=== PATIENT | female | born 1990 | race Caucasian/White ===

== ENCOUNTER 2017-12-15 20:36 | Emergency (ER) | payer MEDICAID ==
[~2017-12-15] VITALS: Ht 157.5 cm; Wt 50.8 kg
[2017-12-15 20:40] VITALS: BP_SYST 115
[2017-12-15 20:58] LABS: BILIRUBIN,URINE NEGATIVE (NEGATIVE); BLOOD, URINE NEGATIVE (NEGATIVE); CLARITY/URINE CLEAR (CLEAR); COLOR,URINE YELLOW (YELLOW); GLUCOSE,URINE NEGATIVE (NEGATIVE); KETONES,URINE NEGATIVE (NEGATIVE); LEUKOCYTE ESTERASE ,URINE NEGATIVE (NEGATIVE); NITRITE, URINE NEGATIVE (NEGATIVE); PH,URINE 7.5 (5.0-8.0); PROTEIN URINE NEGATIVE (NEGATIVE); UROBILINOGEN,URINE 0.2 (0.2-1.0)
[2017-12-15 21:38] LABS: BASOPHILS # (AUTO) 0.1 K/uL (0.0-0.2); BASOPHILS % (AUTO) 1.1 % (0.0-2.0); EOSINOPHILS # (AUTO) 0.1 K/uL (0.0-0.4); EOSINOPHILS % (AUTO) 1.3 % (0.0-4.0); HEMATOCRIT 34.6 % (36-48); HEMOGLOBIN 11.4 g/dL (12.0-16.0); LYMPHOCYTES # (AUTO) 2.9 K/uL (1.0-5.5); LYMPHOCYTES % (AUTO) 44.7 % (20.5-51.5); MEAN CORPUSCULAR HEMOGLOBIN 28 pg (27-31); MEAN CORPUSCULAR HGB CONC 33 % (32-36); MEAN CORPUSCULAR VOLUME 83 fL (79.0-98.0); MONOCYTES # (AUTO) 0.8 K/uL (0.0-1.0); MONOCYTES % (AUTO) 11.6 % (1.7-9.3); NEUTROPHILS # (AUTO) 2.8 K/uL (1.8-7.7); NEUTROPHILS % (AUTO) 41.3 % (40.0-70.0); PLATELET COUNT (AUTO) 175 K/uL (130-430); RED BLOOD CELL COUNT(AUTO) 4.17 MIL/uL (4.2-6.2); RED CELL DISTRIBUTION WIDTH 15.2 % (9.0-15.0); WHITE BLOOD COUNT (AUTO) 6.7 K/uL (4.8-10.8)
[2017-12-15 21:48] LABS: CALCIUM 8.8 mg/dL (8.4-11.0); CREATININE 0.82 mg/dL (0.55-1.30)
[2017-12-15 22:30] VITALS: BP_SYST 109
== END 2017-12-15 22:30 | disposition home or self-care (01) ==
LOC: SED 20:36
DX: S39.012A Strain of muscle, fascia and tendon of lower back, initial encounter (principal); X58.XXXA Exposure to other specified factors, initial encounter; Y93.89 Activity, other specified; Y92.89 Other specified places as the place of occurrence of the external cause; Y99.8 Other external cause status
CPT/HCPCS: 36415; 80048; 81003; 81025; 85025; 99284

== ENCOUNTER 2019-04-26 09:58 | Emergency (ER) | payer MEDICAID ==
[~2019-04-26] VITALS: Ht 157.5 cm; Wt 51.7 kg
[2019-04-26 10:08] VITALS: BP_SYST 131
[2019-04-26 10:54] VITALS: BP_SYST 131
== END 2019-04-26 10:54 | disposition home or self-care (01) ==
LOC: SED 09:58
DX: N39.0 Urinary tract infection, site not specified (principal); R03.0 Elevated blood-pressure reading, without diagnosis of hypertension
CPT/HCPCS: 81002; 81025; 99283

== ENCOUNTER 2019-11-24 15:43 | Emergency (ER) | payer MEDICAID ==
[~2019-11-24] VITALS: Ht 157.5 cm; Wt 54.4 kg
[2019-11-24 15:55] VITALS: BP_SYST 114
--- NOTE | 2019-11-24 15:55 | NUR ---
PT AAO AND AMBULATORY C/O WORSENING URINARY SYMPTOMS.
--- NOTE | 2019-11-24 16:20 | NUR ---
ER Dr. PRADO at bedside examining patient.
--- NOTE | 2019-11-24 16:30 | NUR ---
Patient given written and verbal discharge instructions and verbalizes understanding. DR. JOHAN DUFF MD discussed with patient the results and treatment provided. Patient in stable condition. ID arm band removed. Rx of MACROBID AND PYRIDIUM given. Patient educated on pain management and to follow up with PMD. Pain Scale 0/10. Opportunity for questions provided and answered. Medication side effect fact sheet provided.
[2019-11-24 16:35] VITALS: BP_SYST 114
== END 2019-11-24 16:30 | disposition home or self-care (01) ==
LOC: SED 15:43
DX: N39.0 Urinary tract infection, site not specified (principal)
CPT/HCPCS: 81002; 81025; 99283

== ENCOUNTER 2020-04-11 00:26 | Emergency (ER) | payer MEDICAID ==
[~2020-04-11] VITALS: Ht 157.5 cm; Wt 59.0 kg
[2020-04-11 00:35] VITALS: BP_SYST 129
[2020-04-11] MEDS ORDERED: NACL 0.9% 1,000 ML IV ONE (01:15)
[2020-04-11 01:30] LABS: BILIRUBIN,URINE 1+ (NEGATIVE); BLOOD, URINE 3+ (NEGATIVE); CLARITY/URINE TURBID (CLEAR); COLOR,URINE YELLOW (YELLOW); GLUCOSE,URINE NEGATIVE (NEGATIVE); KETONES,URINE TRACE (NEGATIVE); LEUKOCYTE ESTERASE ,URINE NEGATIVE (NEGATIVE); NITRITE, URINE NEGATIVE (NEGATIVE); PROTEIN URINE 1+ (NEGATIVE); UROBILINOGEN,URINE 0.2 (0.2-1.0)
[2020-04-11 01:32] LABS: HCG,QUAL RESULT NEGATIVE (NEGATIVE)
[2020-04-11 02:07] LABS: BACTERIA,URINE FEW /HPF (None Seen); RBC,URINE >100 /HPF (0-3); WBC,URINE 0-3 /HPF (0-3)
[2020-04-11 02:10] LABS: CALCIUM 8.7 mg/dL (8.4-11.0); CREATININE 0.66 mg/dL (0.55-1.30); POTASSIUM 3.7 mmol/L (3.5-5.1)
[2020-04-11 02:11] LABS: LYMPHOCYTES # (AUTO) 3.4 K/uL (1.0-5.5); MONOCYTES # (AUTO) 0.7 K/uL (0.0-1.0)
[2020-04-11 02:24] LABS: BASOPHILS % (AUTO) 0.7 % (0.0-2.0); EOSINOPHILS # (AUTO) 0.2 K/uL (0.0-0.4); EOSINOPHILS % (AUTO) 2.3 % (0.0-4.0); HEMATOCRIT 42.2 % (36-48); HEMOGLOBIN 14.2 g/dL (12.0-16.0); LYMPHOCYTES % (AUTO) 48.2 % (20.5-51.5); MEAN CORPUSCULAR HEMOGLOBIN 31 pg (27-31); MEAN CORPUSCULAR HGB CONC 34 % (32-36); MEAN CORPUSCULAR VOLUME 91 fL (79.0-98.0); MONOCYTES % (AUTO) 10.3 % (1.7-9.3); NEUTROPHILS # (AUTO) 2.7 K/uL (1.8-7.7); NEUTROPHILS % (AUTO) 38.5 % (40.0-70.0); PLATELET COUNT (AUTO) 177 K/uL (130-430); RED BLOOD CELL COUNT(AUTO) 4.64 MIL/uL (4.2-6.2); RED CELL DISTRIBUTION WIDTH 13.5 % (9.0-15.0)
[2020-04-11] MEDS ORDERED: KETOROLAC TROMETHAMINE 15 MG VIAL IVP ONE (03:30)
[2020-04-11 03:50] VITALS: BP_SYST 108
== END 2020-04-11 03:50 | disposition home or self-care (01) ==
LOC: SED 00:26
DX: O20.9 Hemorrhage in early pregnancy, unspecified (principal); Z3A.01 Less than 8 weeks gestation of pregnancy
CPT/HCPCS: 36415; 76830; 76857; 80048; 81000; 81025; 84702; 84703; 85025; 86900; 86901; 96361; 96374; 99284; J1885; J7030

== ENCOUNTER 2020-11-27 14:25 | Emergency (ER) | payer MEDICAID ==
[~2020-11-27] VITALS: Ht 157.5 cm; Wt 67.1 kg
[2020-11-27 14:47] VITALS: BP_SYST 142
[2020-11-27 15:18] LABS: BASOPHILS # (AUTO) 0.1 K/uL (0.0-0.2); BASOPHILS % (AUTO) 0.5 % (0.0-2.0); EOSINOPHILS # (AUTO) 0.1 K/uL (0.0-0.4); EOSINOPHILS % (AUTO) 0.6 % (0.0-4.0); HEMATOCRIT 42.4 % (36-48); HEMOGLOBIN 13.7 g/dL (12.0-16.0); MEAN CORPUSCULAR HEMOGLOBIN 28 pg (27-31); MEAN CORPUSCULAR HGB CONC 32 % (32-36); MEAN CORPUSCULAR VOLUME 88 fL (79.0-98.0); MONOCYTES # (AUTO) 0.9 K/uL (0.0-1.0); MONOCYTES % (AUTO) 8.7 % (1.7-9.3); NEUTROPHILS % (AUTO) 70.2 % (40.0-70.0); PLATELET COUNT (AUTO) 165 K/uL (130-430); RED BLOOD CELL COUNT(AUTO) 4.83 MIL/uL (4.2-6.2)
[2020-11-27 15:38] LABS: CALCIUM 8.9 mg/dL (8.4-11.0); CREATININE 0.76 mg/dL (0.55-1.30)
[2020-11-27 15:43] LABS: TOTAL BILIRUBIN 0.4 mg/dL (0.0-1.0)
[2020-11-27 15:49] LABS: BILIRUBIN,URINE NEGATIVE (NEGATIVE); COLOR,URINE YELLOW (YELLOW); GLUCOSE,URINE NEGATIVE (NEGATIVE); KETONES,URINE NEGATIVE (NEGATIVE); LEUKOCYTE ESTERASE ,URINE TRACE (NEGATIVE); NITRITE, URINE NEGATIVE (NEGATIVE); PROTEIN URINE NEGATIVE (NEGATIVE); UROBILINOGEN,URINE 0.2 (0.2-1.0)
[2020-11-27 16:05] LABS: BLOOD, URINE TRACE (NEGATIVE); CLARITY/URINE HAZY (CLEAR)
[2020-11-27 16:32] LABS: C-REACTIVE PROTEIN QUANT 0.3 mg/dL (0-0.5)
[2020-11-27 16:34] LABS: BACTERIA,URINE MODERATE /HPF (None Seen); MUCUS,URINE None Seen /LPF (None Seen); RBC,URINE 0-3 /HPF (0-3); URINE AMORPHOUS PHOSPHATES 2+ /HPF (None Seen)
[2020-11-27] MEDS ORDERED: HYDR-3917 PO (16:37)
[2020-11-27] MEDS ORDERED: OMEP20CA15 PO (16:37)
[2020-11-27 16:50] VITALS: BP_SYST 108
== END 2020-11-27 16:50 | disposition home or self-care (01) ==
LOC: SED 14:25
DX: R10.33 Periumbilical pain (principal); Z79.899 Other long term (current) drug therapy
CPT/HCPCS: 36415; 80053; 81000; 81025; 82150; 83605; 83690; 84703; 85025; 86140; 87086; 99283

== ENCOUNTER 2021-02-23 05:20 | Emergency (ER) | payer MEDICAID ==
[~2021-02-23] VITALS: Ht 157.5 cm; Wt 59.0 kg
[~2021-02-23 05:20] MED LIST: HYDR-3917 PO; OMEP20CA15 PO
[2021-02-23 05:39] VITALS: BP_SYST 106
[2021-02-23] MEDS ORDERED: ONDANSETRON HCL 4 MG/2 ML VIAL IVP ONE (05:45)
[2021-02-23] MEDS ORDERED: KETOROLAC TROMETHAMINE 30 MG VIAL IVP ONE (05:45)
[2021-02-23] MEDS ORDERED: ONDANSETRON HCL 4 MG/2 ML VIAL ONE (05:53)
[2021-02-23 06:36] LABS: CREATININE 0.68 mg/dL (0.55-1.30); POTASSIUM 3.6 mmol/L (3.5-5.1)
[2021-02-23 06:37] LABS: BASOPHILS # (AUTO) 0.1 K/uL (0.0-0.2); BASOPHILS % (AUTO) 0.8 % (0.0-2.0); EOSINOPHILS # (AUTO) 0.1 K/uL (0.0-0.4); EOSINOPHILS % (AUTO) 1.2 % (0.0-4.0); HEMATOCRIT 40.4 % (36-48); HEMOGLOBIN 13.4 g/dL (12.0-16.0); LYMPHOCYTES # (AUTO) 2.6 K/uL (1.0-5.5); LYMPHOCYTES % (AUTO) 36.9 % (20.5-51.5); MEAN CORPUSCULAR HEMOGLOBIN 30 pg (27-31); MEAN CORPUSCULAR HGB CONC 33 % (32-36); MEAN CORPUSCULAR VOLUME 90 fL (79.0-98.0); MONOCYTES # (AUTO) 0.8 K/uL (0.0-1.0); MONOCYTES % (AUTO) 10.7 % (1.7-9.3); NEUTROPHILS # (AUTO) 3.6 K/uL (1.8-7.7); PLATELET COUNT (AUTO) 176 K/uL (130-430); RED CELL DISTRIBUTION WIDTH 14.7 % (9.0-15.0); WHITE BLOOD COUNT (AUTO) 7.2 K/uL (4.8-10.8)
[2021-02-23 06:48] LABS: TOTAL BILIRUBIN 0.5 mg/dL (0.0-1.0)
[2021-02-23 07:32] LABS: BILIRUBIN,URINE 1+ (NEGATIVE); BLOOD, URINE NEGATIVE (NEGATIVE); CLARITY/URINE CLEAR (CLEAR); COLOR,URINE YELLOW (YELLOW); GLUCOSE,URINE NEGATIVE (NEGATIVE); KETONES,URINE 1+ (NEGATIVE); LEUKOCYTE ESTERASE ,URINE NEGATIVE (NEGATIVE); NITRITE, URINE NEGATIVE (NEGATIVE); PROTEIN URINE NEGATIVE (NEGATIVE); UROBILINOGEN,URINE 0.2 (0.2-1.0)
[2021-02-23 08:35] LABS: NEUTROPHILS % (AUTO) 50.4 % (40.0-70.0)
[2021-02-23 09:14] VITALS: BP_SYST 106
== END 2021-02-23 09:15 | disposition home or self-care (01) ==
LOC: SED 05:20
DX: R10.13 Epigastric pain (principal); R11.0 Nausea; Z79.899 Other long term (current) drug therapy
CPT/HCPCS: 36415; 76700; 80053; 81003; 81025; 83690; 84702; 85025; 96374; 96375; 99284; J1885; J2405

== ENCOUNTER 2021-07-18 14:01 | Emergency (ER) | payer MEDICAID ==
[~2021-07-18] VITALS: Ht 157.5 cm; Wt 57.2 kg
[2021-07-18 14:01] VITALS: BP_SYST 109
--- NOTE | 2021-07-18 14:01 | NUR ---
BROUGHT BACK TO BED IN HALLWAY, TRIAGED, REPORT GIVEN TO HARSHIL
--- NOTE | 2021-07-18 14:03 | NUR ---
Pt brought by self, A&Ox4, pt presents to ER with pain/ burning with urination and lower back pain x 1 week, skin pink and warm, cap refill <3, VSS, respirations even and unlabored.
--- NOTE | 2021-07-18 14:05 | NUR ---
Dr Ramachandran evaluating patient at bedside
[2021-07-18 14:37] LABS: BILIRUBIN,URINE NEGATIVE (NEGATIVE); CLARITY/URINE CLEAR (CLEAR); COLOR,URINE YELLOW (YELLOW); GLUCOSE,URINE NEGATIVE (NEGATIVE); KETONES,URINE NEGATIVE (NEGATIVE); LEUKOCYTE ESTERASE ,URINE TRACE (NEGATIVE); NITRITE, URINE NEGATIVE (NEGATIVE); PROTEIN URINE NEGATIVE (NEGATIVE); UROBILINOGEN,URINE 0.2 (0.2-1.0)
[2021-07-18 14:40] LABS: BLOOD, URINE TRACE (NEGATIVE)
--- NOTE | 2021-07-18 14:48 | NUR ---
received report from HORTENCIA Agudelo for continuation of care.
[2021-07-18 14:51] LABS: BACTERIA,URINE FEW /HPF (None Seen)
[2021-07-18 14:52] LABS: MUCUS,URINE 1+ /LPF (None Seen); YEAST,URINE Few /HPF (None Seen)
[2021-07-18 14:58] LABS: BASOPHILS # (AUTO) 0.1 K/uL (0.0-0.2); BASOPHILS % (AUTO) 1.2 % (0.0-2.0); EOSINOPHILS # (AUTO) 0.1 K/uL (0.0-0.4); EOSINOPHILS % (AUTO) 1.1 % (0.0-4.0); HEMATOCRIT 43.4 % (36-48); HEMOGLOBIN 14.5 g/dL (12.0-16.0); LYMPHOCYTES # (AUTO) 2.3 K/uL (1.0-5.5); LYMPHOCYTES % (AUTO) 37.4 % (20.5-51.5); MEAN CORPUSCULAR HEMOGLOBIN 30 pg (27-31); MEAN CORPUSCULAR HGB CONC 33 % (32-36); MEAN CORPUSCULAR VOLUME 91 fL (79.0-98.0); MONOCYTES # (AUTO) 0.6 K/uL (0.0-1.0); MONOCYTES % (AUTO) 10.3 % (1.7-9.3); NEUTROPHILS # (AUTO) 3.1 K/uL (1.8-7.7); PLATELET COUNT (AUTO) 168 K/uL (130-430); RED BLOOD CELL COUNT(AUTO) 4.76 MIL/uL (4.2-6.2); RED CELL DISTRIBUTION WIDTH 14.1 % (9.0-15.0); WHITE BLOOD COUNT (AUTO) 6.1 K/uL (4.8-10.8)
[2021-07-18 15:26] LABS: ANION GAP 9 (5-15); CHLORIDE 101 mmol/L (98-107); CREATININE 0.65 mg/dL (0.55-1.30); GLUCOSE 86 mg/dL (70-99); POTASSIUM 3.9 mmol/L (3.5-5.1); SODIUM SERUM 137 mmol/L (136-145); UREA NITROGEN, BLOOD 12 mg/dL (8-21)
[2021-07-18 15:29] LABS: GFR AFRICAN AMERICAN 138 mL/min (>90)
[2021-07-18] MEDS ORDERED: IBUPROFEN 800 MG TABLET PO ONE (15:30)
[2021-07-18 15:32] LABS: ALANINE AMINOTRANSFERASE 23 U/L (12-78); ALBUMIN 3.9 g/dL (3.4-4.8); AMYLASE 65 U/L (0-100); ASPARTATE AMINOTRANSFERASE 24 U/L (10-37); LIPASE 50 U/L (73-393); TOTAL BILIRUBIN 0.4 mg/dL (0.0-1.0)
[2021-07-18] MEDS ORDERED: IBUP-1969 PO (15:54)
[2021-07-18] MEDS ORDERED: NITR-85 PO (15:54)
[2021-07-18 15:56] LABS: C-REACTIVE PROTEIN QUANT < 0.2 mg/dL (0-0.5)
[2021-07-18 16:07] VITALS: BP_SYST 109
--- NOTE | 2021-07-18 16:09 | NUR ---
Patient given written and verbal discharge instructions and verbalizes understanding. ER MD discussed with patient the results and treatment provided. Patient in stable condition. ID arm band removed. Rx of Ibuprofen and Macrobid given. Patient educated on pain management and to follow up with PMD. Pain Scale 0/10. Opportunity for questions provided and answered. Medication side effect fact sheet provided.
== END 2021-07-18 16:09 | disposition home or self-care (01) ==
LOC: SED 14:01
DX: N39.0 Urinary tract infection, site not specified (principal); Z79.899 Other long term (current) drug therapy
CPT/HCPCS: 36415; 80053; 81000; 81025; 82150; 83605; 83690; 84703; 85025; 86140; 87086; 99283

== ENCOUNTER 2022-04-15 15:56 | Emergency (ER) | payer MEDICAID ==
[~2022-04-15] VITALS: Ht 157.5 cm; Wt 53.5 kg
[~2022-04-15 15:56] MED LIST changes: +IBUP-1969 PO; +NITR-85 PO
[2022-04-15 16:46] VITALS: BP_SYST 116
--- NOTE | 2022-04-15 19:50 | NUR ---
ER Dr.Dela Sow in triage examining patient.
[2022-04-15 20:02] LABS: BASOPHILS % (AUTO) 0.2 % (0.0-2.0); HEMATOCRIT 42.7 % (36-48); HEMOGLOBIN 14.5 g/dL (12.0-16.0); LYMPHOCYTES # (AUTO) 0.6 K/uL (1.0-5.5); LYMPHOCYTES % (AUTO) 7.8 % (20.5-51.5); MEAN CORPUSCULAR HEMOGLOBIN 31 pg (27-31); MEAN CORPUSCULAR HGB CONC 34 % (32-36); MEAN CORPUSCULAR VOLUME 90 fL (79.0-98.0); MONOCYTES # (AUTO) 0.2 K/uL (0.0-1.0); MONOCYTES % (AUTO) 3.1 % (1.7-9.3); NEUTROPHILS # (AUTO) 7.1 K/uL (1.8-7.7); NEUTROPHILS % (AUTO) 88.9 % (40.0-70.0); PLATELET COUNT (AUTO) 144 K/uL (130-430); RED BLOOD CELL COUNT(AUTO) 4.74 MIL/uL (4.2-6.2); RED CELL DISTRIBUTION WIDTH 14.2 % (9.0-15.0)
[2022-04-15 20:10] LABS: CREATININE 0.69 mg/dL (0.55-1.30)
[2022-04-15 20:16] LABS: ALBUMIN 4.3 g/dL (3.4-4.8); TOTAL BILIRUBIN 0.7 mg/dL (0.0-1.0)
[2022-04-15] MEDS ORDERED: ANT30 PO (21:37)
[2022-04-15] MEDS ORDERED: ACET-2634 PO (21:37)
[2022-04-15] MEDS ORDERED: FAMO40TA71 PO (21:37)
[2022-04-15] MEDS ORDERED: MAG HYDROX/AL HYDROX/SIMETH 30 ML, DICYCLOMINE HCL 20 MG, LIDOCAINE VISCOUS 2% 15ML (PO... PO ONE ×3 (22:00)
--- NOTE | 2022-04-15 22:54 | NUR ---
Patient presents to ED for evaluation of a 2-day history of intermittent, nonradiating epigastric abdominal pain and right upper quadrant, worsening this morning. Patient denies any alleviating or exacerbating factors. Denies fevers, chills, nausea, vomiting, dysuria, hematuria, constipation, diarrhea or other complaints. Patient breathing easy,respirations even unlabored.
[2022-04-15 23:08] VITALS: BP_SYST 108
--- NOTE | 2022-04-15 23:08 | NUR ---
Patient given written and verbal discharge instructions and verbalizes understanding. ER MD discussed with patient the results and treatment provided. Patient in stable condition. Rx of Acetaminophen, Mylanta and Pepcid sent to pharmacy of choice. Patient educated on pain management and to follow up with PMD. Pain Scale 3/10. Opportunity for questions provided and answered.
== END 2022-04-15 23:08 | disposition home or self-care (01) ==
LOC: SED 15:56
DX: K29.70 Gastritis, unspecified, without bleeding (principal); R10.13 Epigastric pain; R10.11 Right upper quadrant pain; Z79.899 Other long term (current) drug therapy
CPT/HCPCS: 99284; 76705; 80053; 85025; 36415; 76856; 81025; J2001

== ENCOUNTER 2023-07-17 22:40 | Emergency (ER) | payer MEDICAID ==
[~2023-07-17] VITALS: Ht 157.5 cm; Wt 59.0 kg
[~2023-07-17 22:40] MED LIST changes: +ACET-2634 PO; +ANT30 PO; +FAMO40TA71 PO
[2023-07-17 22:46] VITALS: BP_SYST 124; PULSE 81; RESP 20; TEMP 98; O2SAT 100
[2023-07-18 00:29] LABS: BASOPHILS # (AUTO) 0.1 K/uL (0.0-0.2); EOSINOPHILS # (AUTO) 0.1 K/uL (0.0-0.4); EOSINOPHILS % (AUTO) 1.1 % (0.0-4.0); HEMATOCRIT 37.3 % (36-48); HEMOGLOBIN 12.5 g/dL (12.0-16.0); LYMPHOCYTES # (AUTO) 2.2 K/uL (1.0-5.5); LYMPHOCYTES % (AUTO) 33.1 % (20.5-51.5); MEAN CORPUSCULAR HEMOGLOBIN 30 pg (27-31); MEAN CORPUSCULAR HGB CONC 33 % (32-36); MEAN CORPUSCULAR VOLUME 88 fL (79.0-98.0); MONOCYTES # (AUTO) 0.7 K/uL (0.0-1.0); MONOCYTES % (AUTO) 10.8 % (1.7-9.3); NEUTROPHILS # (AUTO) 3.6 K/uL (1.8-7.7); PLATELET COUNT (AUTO) 184 K/uL (130-430); RED BLOOD CELL COUNT(AUTO) 4.22 MIL/uL (4.2-6.2); RED CELL DISTRIBUTION WIDTH 14.1 % (9.0-15.0); WHITE BLOOD COUNT (AUTO) 6.7 K/uL (4.8-10.8)
[2023-07-18 00:44] LABS: BILIRUBIN,URINE NEGATIVE (NEGATIVE); BLOOD, URINE 3+ (NEGATIVE); COLOR,URINE YELLOW (YELLOW); GLUCOSE,URINE NEGATIVE (NEGATIVE); KETONES,URINE NEGATIVE (NEGATIVE); LEUKOCYTE ESTERASE ,URINE TRACE (NEGATIVE); NITRITE, URINE NEGATIVE (NEGATIVE); PROTEIN URINE NEGATIVE (NEGATIVE); UROBILINOGEN,URINE 0.2 (0.2-1.0)
[2023-07-18] MEDS: KETOROLAC TROMETHAMINE 15 MG VIAL IM ONE (00:48)
[2023-07-18 00:51] LABS: CALCIUM 9.5 mg/dL (8.4-11.0); CREATININE 0.62 mg/dL (0.55-1.30); POTASSIUM 3.9 mmol/L (3.5-5.1)
[2023-07-18 00:54] LABS: ALBUMIN 4.2 g/dL (3.4-4.8); BILIRUBIN,DIRECT 0.1 mg/dL (0.0-0.3); TOTAL BILIRUBIN 0.2 mg/dL (0.0-1.0); TOTAL PROTEIN, SERUM 8.2 g/dL (6.4-8.3)
[2023-07-18 01:09] LABS: CLARITY/URINE SLIGHTLY CLOUDY (CLEAR)
[2023-07-18 01:10] LABS: BACTERIA,URINE FEW /HPF (None Seen); RBC,URINE 80-100 /HPF (0-3)
[2023-07-18] MEDS ORDERED: IBUP-1969 PO (03:49)
[2023-07-18] MEDS ORDERED: CEPH250C PO (03:51)
[2023-07-18 03:57] VITALS: BP_SYST 120; PULSE 75; RESP 22; TEMP 98; O2SAT 99
== END 2023-07-18 03:59 | disposition home or self-care (01) ==
LOC: SED 22:40
DX: N93.9 Abnormal uterine and vaginal bleeding, unspecified (principal); N83.201 Unspecified ovarian cyst, right side; R10.2 Pelvic and perineal pain; Z79.899 Other long term (current) drug therapy
CPT/HCPCS: 99285; 80076; 80048; 81001; 85025; 87086; 36415; 81025; 76830; 96372; J1885; 81000; 81015

== ENCOUNTER 2023-11-21 06:48 | Day surgery (SDC) | payer MEDICAID ==
[~2023-11-21] VITALS: Ht 157.5 cm; Wt 56.7 kg
[~2023-11-21 06:48] MED LIST changes: +CEPH250C PO
[2023-11-21] MEDS ORDERED: MIDAZOLAM HCL 5 MG/5 ML VIAL ONE (07:15)
[2023-11-21] MEDS ORDERED: MEPERIDINE HCL/PF 25 MG/ML DISP.SYRIN ONE (07:15)
[2023-11-21] MEDS ORDERED: BENZOCAINE 20% 0.5mL UD SPRAY MM ONE (07:15)
[2023-11-21 07:46] LABS: HCG,QUAL RESULT NEGATIVE (NEGATIVE)
[2023-11-21] MEDS ORDERED: MEPERIDINE 100 MG INJ. 100 MG/ML VIAL ONE (10:39)
[2023-11-21] MEDS ORDERED: DIPHENHYDRAMINE INJ 50 MG/ML VIAL ONE (10:47)
[2023-11-21] MEDS ORDERED: ONDANSETRON HCL 4 MG/2 ML VIAL ONE (11:09)
[2023-11-21 18:01] VITALS: BP_SYST 104; PULSE 66; RESP 20; TEMP 97.2; O2SAT 100
== END 2023-11-21 12:16 | disposition home or self-care (01) ==
LOC: SDS 06:48 → SMU 06:49 → SDS 12:16
PROVIDERS: ATTEND Internal Medicine
DX: R10.13 Epigastric pain (principal); K29.50 Unspecified chronic gastritis without bleeding; K31.89 Other diseases of stomach and duodenum; F41.9 Anxiety disorder, unspecified; Z79.899 Other long term (current) drug therapy
CPT/HCPCS: 43239; 99152; 84703; 88305; 88312; 88313; G0378; J1200; J2250; J2405; J2175

== ENCOUNTER 2024-02-05 08:58 | Emergency (ER) | payer MEDICAID ==
[~2024-02-05] VITALS: Ht 154.9 cm; Wt 54.4 kg
[2024-02-05 09:34] VITALS: BP_SYST 93; PULSE 78; RESP 16; TEMP 98.5; O2SAT 99
[2024-02-05 10:02] LABS: BILIRUBIN,URINE NEGATIVE (NEGATIVE); BLOOD, URINE NEGATIVE (NEGATIVE); CLARITY/URINE CLEAR (CLEAR); COLOR,URINE YELLOW (YELLOW); GLUCOSE,URINE NEGATIVE (NEGATIVE); KETONES,URINE NEGATIVE (NEGATIVE); LEUKOCYTE ESTERASE ,URINE TRACE (NEGATIVE); NITRITE, URINE NEGATIVE (NEGATIVE); PROTEIN URINE NEGATIVE (NEGATIVE); UROBILINOGEN,URINE 0.2 (0.2-1.0)
[2024-02-05 10:39] LABS: BACTERIA,URINE MODERATE /HPF (None Seen); MUCUS,URINE 1+ /LPF (None Seen); RBC,URINE 0-3 /HPF (0-3)
[2024-02-05] MEDS ORDERED: NITR-85 PO (10:48)
[2024-02-05 11:18] VITALS: BP_SYST 98; PULSE 75; RESP 16; TEMP 98.3; O2SAT 99
== END 2024-02-05 11:17 | disposition home or self-care (01) ==
LOC: SED 08:58
DX: O23.41 Unspecified infection of urinary tract in pregnancy, first trimester (principal); N39.0 Urinary tract infection, site not specified; Z3A.01 Less than 8 weeks gestation of pregnancy; Z79.899 Other long term (current) drug therapy; Z79.2 Long term (current) use of antibiotics
CPT/HCPCS: 81000; 81001; 81015; 87086; 99283